=== PATIENT | female | born 1980 | race Caucasian/White ===

== ENCOUNTER 2021-08-08 08:59 | Emergency (ER) | payer OTHER ==
[~2021-08-08] VITALS: Ht 165.1 cm; Wt 120.2 kg
[2021-08-08 09:00] VITALS: BP_SYST 150
--- NOTE | 2021-08-08 09:00 | NUR ---
BROUGHT BACK TO BED #8 AND TRIAGED, REPORT GIVEN TO MIC
--- NOTE | 2021-08-08 09:05 | NUR ---
PT CAME IN FROM HOME C/O PAIN TO LEFT LOWER MOUTH, TOOTH PAIN AND SWELLING AND HOT TO TOUCH. REPORTS SWELLING STARTED YESTERDAY AFTER SEEING DENTIST AND BEING STARTED ON CLINDAMYIN AT HOME. NO DROOLING, PT IS AMBULATORY, AAOX4, VSS, SPEAKING CLEARLY
--- NOTE | 2021-08-08 09:29 | NUR ---
DR PEARCE AT BEDSIDE FOR EVALUATION
--- NOTE | 2021-08-08 09:35 | NUR ---
# 20 gauge angiocath placed to LAC. Use of asceptic technique. Opsite placed over site. Blood return noted. Blood for lab drawn from site. Flushed with 10 cc of normal saline. No evidence of infiltration noted. Patient tolerated well.
[2021-08-08] MEDS ORDERED: ONDANSETRON HCL 4 MG/2 ML VIAL IVP ONE (09:45)
[2021-08-08] MEDS ORDERED: cefTRIAXone 1 GM in D5W 50 ML IV ONE (09:45)
[2021-08-08] MEDS ORDERED: MORPHINE 4 MG INJ. 4 MG/ML VIAL IVP ONE (09:45)
[2021-08-08] MEDS ORDERED: NACL 0.9% 1,000 ML IV ONE (09:45)
[2021-08-08 10:02] LABS: BASOPHILS # (AUTO) 0.1 K/uL (0.0-0.2); BASOPHILS % (AUTO) 0.4 % (0.0-2.0); EOSINOPHILS # (AUTO) 0.1 K/uL (0.0-0.4); EOSINOPHILS % (AUTO) 0.7 % (0.0-4.0); HEMATOCRIT 38.1 % (36-48); LYMPHOCYTES # (AUTO) 3.2 K/uL (1.0-5.5); LYMPHOCYTES % (AUTO) 24.2 % (20.5-51.5); MEAN CORPUSCULAR HEMOGLOBIN 29 pg (27-31); MEAN CORPUSCULAR HGB CONC 34 % (32-36); MEAN CORPUSCULAR VOLUME 85 fL (79.0-98.0); MONOCYTES # (AUTO) 0.6 K/uL (0.0-1.0); MONOCYTES % (AUTO) 4.8 % (1.7-9.3); NEUTROPHILS # (AUTO) 9.2 K/uL (1.8-7.7); NEUTROPHILS % (AUTO) 69.9 % (40.0-70.0); PLATELET COUNT (AUTO) 231 K/uL (130-430); RED BLOOD CELL COUNT(AUTO) 4.47 MIL/uL (4.2-6.2); RED CELL DISTRIBUTION WIDTH 14.5 % (9.0-15.0); WHITE BLOOD COUNT (AUTO) 13.2 K/uL (4.8-10.8)
--- NOTE | 2021-08-08 10:06 | NUR ---
RETURNED FROM RADIOLOGY AND PLACED BACK INTO BED #8.
[2021-08-08 10:12] LABS: CALCIUM 7.8 mg/dL (8.4-11.0); CREATININE 0.75 mg/dL (0.55-1.30); POTASSIUM 3.5 mmol/L (3.5-5.1)
[2021-08-08 10:19] LABS: ALBUMIN 3.2 g/dL (3.4-4.8); TOTAL BILIRUBIN 0.3 mg/dL (0.0-1.0)
[2021-08-08] MEDS ORDERED: cefTRIAXone 1 GM VIAL ONE (10:19)
--- NOTE | 2021-08-08 11:15 | NUR ---
DR PEARCE AT BEDSIDE SPEAKING WITH PT REGARDING TEST RESULTS.
[2021-08-08] MEDS ORDERED: HYDR-3917 PO (11:28)
[2021-08-08] MEDS ORDERED: IBUP-1969 PO (11:28)
[2021-08-08] MEDS ORDERED: CEPH-548 PO ×2 (11:28)
[2021-08-08 11:44] VITALS: BP_SYST 134
--- NOTE | 2021-08-08 11:45 | NUR ---
Patient given written and verbal discharge instructions and verbalizes understanding. ER MD discussed with patient the results and treatment provided. Patient in stable condition. ID arm band removed. IV catheter removed intact and dressing applied, no active bleeding. Rx of KEFLEX, NORCO, IBUPROFEN given. Patient educated on pain management and to follow up with PMD. Pain Scale 0/10. Opportunity for questions provided and answered. Medication side effect fact sheet provided.
[2021-08-09] MEDS ORDERED: BUPR300T46 PO (13:54)
[2021-08-09] MEDS ORDERED: LAMO100T2 PO (13:54)
== END 2021-08-08 11:44 | disposition home or self-care (01) ==
LOC: SED 08:59
DX: L03.211 Cellulitis of face (principal); Z88.0 Allergy status to penicillin
CPT/HCPCS: 36415; 70491; 76376; 80053; 85025; 87040; 96361; 96365; 96375; 99285; J0696; J2270; J2405; J7030; Q9967

== ENCOUNTER 2021-08-09 08:11 | Inpatient (IN) | payer OTHER ==
[~2021-08-09] VITALS: Ht 165.1 cm; Wt 120.2 kg
[~2021-08-09 08:11] MED LIST: CEPH-548 PO; HYDR-3917 PO; IBUP-1969 PO
[2021-08-09 08:20] VITALS: BP_SYST 145
--- NOTE | 2021-08-09 08:20 | NUR ---
Patient to ER bed 7 for evaluation. Side rails up. Report given to Reese ATKINSON.
--- NOTE | 2021-08-09 08:20 | NUR ---
Pt in bed 7 pending ED physician visit.
--- NOTE | 2021-08-09 08:21 | NUR ---
Pt presents to ED AOx4 GCS 15 with complaint of left sided facial swelling and pain to left side of face and neck. Pt was just recently seen in the ED for the same complaint but states that now pain seems to be extending to neck now. wants to be reassessed.
--- NOTE | 2021-08-09 08:22 | NUR ---
Pt seen by ED physician in bed 7 at this time
[2021-08-09] MEDS ORDERED: KETOROLAC TROMETHAMINE 15 MG VIAL IVP ONE ×2 (08:45→11:30)
--- NOTE | 2021-08-09 08:52 | NUR ---
Pt transported to CT by news technical director. 20g IV in L AC. pt medicated for pain
--- NOTE | 2021-08-09 09:20 | NUR ---
Pt back from CT in bed
[2021-08-09] MEDS ORDERED: VANCOMYCIN HCL 1,000 MG in NS 250 ML IV ONE (09:45)
[2021-08-09 10:08] LABS: BASOPHILS # (AUTO) 0.1 K/uL (0.0-0.2); BASOPHILS % (AUTO) 0.5 % (0.0-2.0); EOSINOPHILS # (AUTO) 0.1 K/uL (0.0-0.4); HEMATOCRIT 34.9 % (36-48); HEMOGLOBIN 12.1 g/dL (12.0-16.0); LYMPHOCYTES # (AUTO) 2.8 K/uL (1.0-5.5); LYMPHOCYTES % (AUTO) 24.3 % (20.5-51.5); MEAN CORPUSCULAR HEMOGLOBIN 30 pg (27-31); MEAN CORPUSCULAR HGB CONC 35 % (32-36); MEAN CORPUSCULAR VOLUME 86 fL (79.0-98.0); MONOCYTES # (AUTO) 0.6 K/uL (0.0-1.0); MONOCYTES % (AUTO) 5.5 % (1.7-9.3); NEUTROPHILS # (AUTO) 7.9 K/uL (1.8-7.7); NEUTROPHILS % (AUTO) 68.7 % (40.0-70.0); PLATELET COUNT (AUTO) 217 K/uL (130-430); RED BLOOD CELL COUNT(AUTO) 4.08 MIL/uL (4.2-6.2); RED CELL DISTRIBUTION WIDTH 14.3 % (9.0-15.0); WHITE BLOOD COUNT (AUTO) 11.4 K/uL (4.8-10.8)
[2021-08-09 10:18] LABS: CALCIUM 8.6 mg/dL (8.4-11.0); CHLORIDE 103 mmol/L (98-107); CREATININE 0.69 mg/dL (0.55-1.30); GLUCOSE 82 mg/dL (70-99); POTASSIUM 3.9 mmol/L (3.5-5.1); SODIUM SERUM 134 mmol/L (136-145); UREA NITROGEN, BLOOD 5 mg/dL (8-21)
[2021-08-09 10:23] LABS: ALANINE AMINOTRANSFERASE 100 U/L (12-78); ASPARTATE AMINOTRANSFERASE 51 U/L (10-37); TOTAL BILIRUBIN 0.3 mg/dL (0.0-1.0)
[2021-08-09 10:24] LABS: ANION GAP < 3 (5-15); GFR AFRICAN AMERICAN 121 mL/min (>90)
[2021-08-09 10:25] LABS: C-REACTIVE PROTEIN QUANT 7.8 mg/dL (0-0.5)
[2021-08-09] MEDS ORDERED: VANCOMYCIN HCL 1000 MG/VIAL IV ONE (10:34)
[2021-08-09 12:23] LABS: ERYTHROCYTE SEDIMENTATION RATE 36 MM/HR (0-20)
[2021-08-09] MEDS ORDERED: LAMO100T2 PO (13:54)
[2021-08-09] MEDS ORDERED: BUPR300T46 PO (13:54)
[2021-08-09] MEDS ORDERED: AZTREONAM 1 GM in NS 50 ML IV SCH ×2 (14:00→15:30)
--- NOTE | 2021-08-09 14:23 | NUR ---
Pt transported to floor by ED RN in no acute distress via wheelchair. Report given to vitaly ATKINSON at bedside.
--- NOTE | 2021-08-09 14:25 | NUR ---
CONSULTATION PAGED/CALLED Reason for Consultation: [] FACIAL CELLULITIS Person Who was Notified: [] EDUARD Consulting Physician: [] DR JOSE CALDERON Computer Programming Supervisor Specialty: [] ID Ordering Physician: [] DR WHITE
[2021-08-09 14:35] VITALS: BP_SYST 137
--- NOTE | 2021-08-09 14:35 | NUR ---
ADMISSION PATIENT ADMITTED TO FLOOR, TRANSFERRED VIA WHEEL CHAIR. PATIENT IS AWAKE AND ALERT, PATIENT EDUCATED SUBSTATION ELECTRICIAN LIGHT FOR ASSISTANCE,CALL LIGHT IS WITH HER. PATIENT HAS NO COMPLAINTS AT THIS TIME. WILL CONTINUE TO MONITOR.
--- NOTE | 2021-08-09 15:33 | NUR ---
DR. CALDERON ORDERS WERE RECEIVED FOR ANTIBIOTICS Addendum: 08/09/21 at 1545 by Deedee Leyva RN MEDICATION WAS GIVEN PER ORDER. OK TO GIVE WITH PCN ALLERGY VERIFIED WITH PHARMACY
[2021-08-09 16:14] VITALS: BP_SYST 115
--- NOTE | 2021-08-09 16:15 | NUR ---
PAGING DR. WHITE FOR PAIN MEDICATION ORDERS.
[2021-08-09] MEDS: KETOROLAC TROMETHAMINE 30 MG VIAL IM PRN ×2 (17:40→23:38)
--- NOTE | 2021-08-09 17:46 | NUR ---
pain medication Addendum: 08/09/21 at 1908 by Deedee Leyva RN pain medication orders received from dr. gibbs. patient medicated for pain per order. patient educated consumer loan processor light for assistance. call light is with him. patient has no other needs at this time. no signs of any distress.
--- NOTE | 2021-08-09 19:03 | NUR ---
rn closing note patient is awake and alert states he pain is alot better. patient eating dinner, slowly states she feels like her swelling is going down. patient educated to use call light for assistance. call light is with her. patient has no other needs at this time. patient has no other needs at this time.
--- NOTE | 2021-08-09 20:10 | NUR ---
RECEIVED AWAKE, ALERT AND ORIENTED. IN NO RESP. DISTRESS. VS WNL. HL PATENT. NO CO PAIN OR DISCOMFORT AT THIS TIME. CALL LIGHT WITHIN REACH. WILL CONTINUE WITH PLAN OF CARE.
[2021-08-09 21:16] VITALS: BP_SYST 129
[2021-08-09] MEDS: VANCOMYCIN HCL 1,500 MG in NS 250 ML IV SCH (21:30)
[2021-08-09 21:34] VITALS: BP_SYST 129
--- NOTE | 2021-08-09 23:42 | NUR ---
C/O PAIN TO LT EYE, MEDICATED WITH TORADOL IVP
[2021-08-10 01:29] VITALS: BP_SYST 121
--- NOTE | 2021-08-10 06:57 | NUR ---
PT REMAINS IN STABLE CONDITION. NO CHANGES IN VS. NO C/O PAIN AT THIS TIME. SALINE LOCK PATENT. CALL LIGHT WITHIN REACH. WILL BE ENDORSED TO INCOMING SHIFT.
[2021-08-10 08:21] VITALS: BP_SYST 123
[2021-08-10] MEDS: KETOROLAC TROMETHAMINE 30 MG VIAL IM PRN ×2 (08:54→17:47)
[2021-08-10 11:22] LABS: BASOPHILS # (AUTO) 0.1 K/uL (0.0-0.2); BASOPHILS % (AUTO) 1.3 % (0.0-2.0); EOSINOPHILS # (AUTO) 0.1 K/uL (0.0-0.4); EOSINOPHILS % (AUTO) 0.8 % (0.0-4.0); HEMATOCRIT 35.6 % (36-48); HEMOGLOBIN 12.4 g/dL (12.0-16.0); LYMPHOCYTES # (AUTO) 2.8 K/uL (1.0-5.5); LYMPHOCYTES % (AUTO) 28.3 % (20.5-51.5); MEAN CORPUSCULAR HEMOGLOBIN 30 pg (27-31); MEAN CORPUSCULAR HGB CONC 35 % (32-36); MEAN CORPUSCULAR VOLUME 85 fL (79.0-98.0); MONOCYTES # (AUTO) 0.5 K/uL (0.0-1.0); MONOCYTES % (AUTO) 5.6 % (1.7-9.3); NEUTROPHILS # (AUTO) 6.3 K/uL (1.8-7.7); PLATELET COUNT (AUTO) 226 K/uL (130-430); RED BLOOD CELL COUNT(AUTO) 4.17 MIL/uL (4.2-6.2); RED CELL DISTRIBUTION WIDTH 14.2 % (9.0-15.0); WHITE BLOOD COUNT (AUTO) 9.8 K/uL (4.8-10.8)
[2021-08-10 11:47] LABS: ALBUMIN 2.9 g/dL (3.4-4.8); CALCIUM 8.5 mg/dL (8.4-11.0); CREATININE 0.6 mg/dL (0.55-1.30); POTASSIUM 3.7 mmol/L (3.5-5.1); TOTAL BILIRUBIN 0.4 mg/dL (0.0-1.0)
[2021-08-10 12:46] VITALS: BP_SYST 136
--- NOTE | 2021-08-10 13:49 | NUR ---
Dietitian Recommendations * Mechanical soft diet BOOGIE, RD Please refer to Nutrition Assessment for details. Addendum: 08/10/21 at [address] Amended: Links added.
[2021-08-10] MEDS: VANCOMYCIN HCL 1,500 MG in NS 250 ML IV SCH ×2 (15:10→22:19)
[2021-08-10 15:28] VITALS: BP_SYST 112
[2021-08-10 20:10] VITALS: BP_SYST 134
--- NOTE | 2021-08-10 21:00 | NUR ---
Opening notes/IV antibiotic Pt AAOx4, VSS, afebrile. Left facial swelling less stated per pt. No c/o pain at this time. IV antibiotic Levaquin administered at this time L. AC 20G good blood return. Call light within reach. Safety maintained. To monitor.
[2021-08-10 23:58] VITALS: BP_SYST 129
[2021-08-11] MEDS: KETOROLAC TROMETHAMINE 30 MG VIAL IM PRN ×2 (03:10→13:25)
--- NOTE | 2021-08-11 03:14 | NUR ---
Rounds/Pain Pt c/o 09/13 L. facial pain. Medicated with Toradol 30mg IM as needed. Call light within reach. Safety maintained. To monitor.
--- NOTE | 2021-08-11 05:44 | NUR ---
Dr. Pardo (ID) rounds.
--- NOTE | 2021-08-11 06:00 | NUR ---
Closing notes Pt AAOx4, VSS, afebrile. IV saline lock L. AC20G clear and patent. No c/o pain or swelling on face. Safety maintained to monitor.
[2021-08-11 06:47] LABS: BASOPHILS % (AUTO) 0.3 % (0.0-2.0); EOSINOPHILS # (AUTO) 0.1 K/uL (0.0-0.4); EOSINOPHILS % (AUTO) 1.2 % (0.0-4.0); HEMATOCRIT 33.8 % (36-48); HEMOGLOBIN 11.9 g/dL (12.0-16.0); LYMPHOCYTES # (AUTO) 3.7 K/uL (1.0-5.5); LYMPHOCYTES % (AUTO) 32.9 % (20.5-51.5); MEAN CORPUSCULAR HEMOGLOBIN 30 pg (27-31); MEAN CORPUSCULAR HGB CONC 35 % (32-36); MEAN CORPUSCULAR VOLUME 86 fL (79.0-98.0); MONOCYTES # (AUTO) 0.6 K/uL (0.0-1.0); NEUTROPHILS # (AUTO) 6.8 K/uL (1.8-7.7); NEUTROPHILS % (AUTO) 60.6 % (40.0-70.0); PLATELET COUNT (AUTO) 232 K/uL (130-430); RED BLOOD CELL COUNT(AUTO) 3.95 MIL/uL (4.2-6.2); RED CELL DISTRIBUTION WIDTH 14.3 % (9.0-15.0); WHITE BLOOD COUNT (AUTO) 11.2 K/uL (4.8-10.8)
--- NOTE | 2021-08-11 07:45 | NUR ---
Opening Notes Patient is awake, alert and oriented x4. No resp distress noted. Breathing is even and unlabored, RA. Pt denies any pain at this time. IV site on left AC 20 gauge intact, saline lock. Pt is noted with left facial cheek redness, pt denies any numbness at this time. Per pt, My face looks and feels better than on admission." Pt is ambulatory, steady gait. All needs met at this time. Safety and fall precautions in place. Bed in lowest position, locked. Will continue to monitor.
[2021-08-11 08:00] VITALS: BP_SYST 142
[2021-08-11 08:16] LABS: ALBUMIN 2.9 g/dL (3.4-4.8); C-REACTIVE PROTEIN QUANT 3.9 mg/dL (0-0.5); CALCIUM 8.2 mg/dL (8.4-11.0); CREATININE 0.58 mg/dL (0.55-1.30); POTASSIUM 4.1 mmol/L (3.5-5.1)
[2021-08-11] MEDS: VANCOMYCIN HCL 1,500 MG in NS 250 ML IV SCH ×2 (08:25→20:58)
[2021-08-11 08:44] LABS: ERYTHROCYTE SEDIMENTATION RATE 38 MM/HR (0-20)
[2021-08-11 09:17] LABS: TOTAL BILIRUBIN 0.1 mg/dL (0.0-1.0)
[2021-08-11 11:33] VITALS: BP_SYST 123
[2021-08-11] MEDS: levoFLOXacin 500 MG TABLET PO SCH (11:53)
--- NOTE | 2021-08-11 12:00 | NUR ---
Notes/Tolerated Levaquin PO Patient is awake, alert and oriented x4. S/p oral intake of Levaquin PO, pt shows no signs of reaction at this time. No resp distress noted. Breathing is even and unlabored. Pt denies any pain at this time. Will continue to monitor.
[2021-08-11 15:29] VITALS: BP_SYST 132
--- NOTE | 2021-08-11 16:00 | NUR ---
Notes Patient is awake, alert and oriented x4. No resp distress, RA. Denies any pain at this time. Family be bedside. Will continue to monitor.
--- NOTE | 2021-08-11 18:44 | NUR ---
Closing Notes Patient is awake, alert and oriented x4. No resp distress noted. Breathing is even and unlabored, RA. Pt denies any pain at this time. Family by bedside. IV site on left AC 20 gauge intact, saline lock. Pt reports frequency, urgency while urinating. Reported 20 urine episodes, no reported dysuria. 3 episodes of soft stool. Possible DC tomorrow. No noted reaction to IV ATB/PO ATB at this time. All needs met at this time. Safety and fall precautions in place. Bed in lowest position, locked.
--- NOTE | 2021-08-11 19:55 | NUR ---
Opening notes Pt AAOx4, VSS, afebrile. Pt denies pain. IV saline lock L. AC 20G clear and patent. Call light within reach. Safety maintained. To monitor.
[2021-08-11 20:00] VITALS: BP_SYST 123
[2021-08-12] VITALS: BP_SYST 127
[2021-08-12] MEDS: KETOROLAC TROMETHAMINE 30 MG VIAL IM PRN ×2 (00:52→21:27)
--- NOTE | 2021-08-12 00:52 | NUR ---
Pain Pt c/o 5/10 L. facial pain. Medicated with Toradol 30mg IM as needed. Pt ambulated to bathroom and voided. To monitor.
--- NOTE | 2021-08-12 06:35 | NUR ---
Closing notes Pt alert, awake, no s/s distress noted. Pt dangles her legs, assisted back to bed. BS checked 101. IV saline locked L. AC clear and patent. Call light within reach. Safety maintained. Addendum: 08/12/21 at 0642 by Tamara Leung RN Disregard above notes, incorrect patient.
[2021-08-12 06:38] LABS: BASOPHILS % (AUTO) 0.3 % (0.0-2.0); EOSINOPHILS # (AUTO) 0.1 K/uL (0.0-0.4); EOSINOPHILS % (AUTO) 1.3 % (0.0-4.0); HEMATOCRIT 34.3 % (36-48); HEMOGLOBIN 11.9 g/dL (12.0-16.0); LYMPHOCYTES # (AUTO) 3.2 K/uL (1.0-5.5); LYMPHOCYTES % (AUTO) 29.4 % (20.5-51.5); MEAN CORPUSCULAR HEMOGLOBIN 30 pg (27-31); MEAN CORPUSCULAR HGB CONC 35 % (32-36); MEAN CORPUSCULAR VOLUME 86 fL (79.0-98.0); MONOCYTES # (AUTO) 0.6 K/uL (0.0-1.0); MONOCYTES % (AUTO) 5.8 % (1.7-9.3); NEUTROPHILS # (AUTO) 6.9 K/uL (1.8-7.7); NEUTROPHILS % (AUTO) 63.2 % (40.0-70.0); PLATELET COUNT (AUTO) 249 K/uL (130-430); RED BLOOD CELL COUNT(AUTO) 4.01 MIL/uL (4.2-6.2); RED CELL DISTRIBUTION WIDTH 14.5 % (9.0-15.0)
[2021-08-12 07:08] LABS: ALBUMIN 2.8 g/dL (3.4-4.8); CALCIUM 7.7 mg/dL (8.4-11.0); CREATININE 0.71 mg/dL (0.55-1.30); POTASSIUM 3.9 mmol/L (3.5-5.1); TOTAL BILIRUBIN 0.2 mg/dL (0.0-1.0)
[2021-08-12 08:11] LABS: C-REACTIVE PROTEIN QUANT 4.1 mg/dL (0-0.5)
[2021-08-12] MEDS: levoFLOXacin 500 MG TABLET PO SCH (09:46)
[2021-08-12 10:08] LABS: ERYTHROCYTE SEDIMENTATION RATE 38 MM/HR (0-20)
[2021-08-12 11:31] VITALS: BP_SYST 125
[2021-08-12] MEDS: VANCOMYCIN HCL 1,500 MG in NS 250 ML IV SCH ×2 (12:44→21:29)
--- NOTE | 2021-08-12 13:06 | NUR ---
Patient is crying. She says she has not taken her pscyhotropic meds. I called Dr Rao.
[2021-08-12 15:46] VITALS: BP_SYST 129
--- NOTE | 2021-08-12 17:48 | NUR ---
patient restless, crying, says she has to leave today. She says withiout her mood stablizer medication she can't stay in the hospital. I called Dr Brown.
--- NOTE | 2021-08-12 18:23 | NUR ---
Paged Dr Schneider. She said patient is not cleared to leave. If they leave it would be AMA
--- NOTE | 2021-08-12 18:38 | NUR ---
Called Dr Schneider again. New order to continue home med Welburtin and Latromogine
[2021-08-12] MEDS ORDERED: LamoTRIgine 100 MG TABLET PO ONE (18:45)
[2021-08-12] MEDS ORDERED: buPROPion HCL 150 MG XL TAB PO ONE (19:00)
[2021-08-12 20:30] VITALS: BP_SYST 125
--- NOTE | 2021-08-12 21:00 | NUR ---
Opening notes Pt alert, awake, ambulates to bathroom. VSS. brought dinner for pt. IV Vanco administered L. hand 22G clear and patent. Pt medicated for c/o pain Toradol IM. Call light within reach. To michelle.
[2021-08-13 00:14] VITALS: BP_SYST 152
--- NOTE | 2021-08-13 05:50 | NUR ---
Closing notes Pt asleep, no s/s distress or discomfort. IV saline lock L. hand 22G clear and patent. Safety maintained. To endorse to AM nurse.
[2021-08-13 08:00] VITALS: BP_SYST 148
[2021-08-13] MEDS ORDERED: buPROPion HCL 150 MG XL TAB PO SCH (09:00)
[2021-08-13] MEDS: VANCOMYCIN HCL 1,500 MG in NS 250 ML IV SCH (09:22)
[2021-08-13] MEDS: levoFLOXacin 500 MG TABLET PO SCH (09:22)
[2021-08-13] MEDS ORDERED: LEVO500T90 PO (09:38)
[2021-08-13 12:00] VITALS: BP_SYST 146
[2021-08-13 16:00] VITALS: BP_SYST 137
--- NOTE | 2021-08-13 16:00 | NUR ---
KAYDEN; You have follow up appointment with dr. Vu on August at 1130 am. please call the md office to confirm your appointment tel # [phone]. Addendum: 08/13/21 at 1609 by Rose Abrams RN [facility] will deliver IV antibiotics to home today between 8-10 pm. [facility] will provide snf and iv infusion nurse. tel # [phone]. The above homehealth and appointment were arranged by kayden Romero /[facility]. [phone]
[2021-08-13 17:20] VITALS: BP_SYST 132
[2021-08-13] MEDS ORDERED: LamoTRIgine 100 MG TABLET PO SCH (18:00)
== END 2021-08-13 17:00 | disposition home health service (06) | DRG 603 ==
LOC: SED 08:11 → SMU 11:44
PROVIDERS: ADMIT Internal Medicine Hospice and Palliative Medicine; ATTEND Internal Medicine Hospice and Palliative Medicine
DX: L03.211 Cellulitis of face (principal); E87.1 Hypo-osmolality and hyponatremia; E44.0 Moderate protein-calorie malnutrition; Z68.41 Body mass index [BMI] 40.0-44.9, adult; L03.221 Cellulitis of neck; K04.7 Periapical abscess without sinus; D64.9 Anemia, unspecified; E83.52 Hypercalcemia; E66.9 Obesity, unspecified; Z20.822 Contact with and (suspected) exposure to COVID-19; R74.01 Elevation of levels of liver transaminase levels; F39 Unspecified mood [affective] disorder; K11.20 Sialoadenitis, unspecified; Z88.0 Allergy status to penicillin
CPT/HCPCS: 36415; 70490; 76376; 80053; 80202; 85025; 85651-TC; 86140; 87040; 96365; 96366; 96375; 99285; J1885; J1956; J3370; J3490; J7050